=== PATIENT | female | born 2000 | race Caucasian/White ===

== ENCOUNTER 2019-04-13 13:35 | Emergency (ER) | payer BC ==
[2019-04-13 13:51] VITALS: BP 95/52; PULSE 70; TEMP 98.3; BMI 17.7
--- NOTE | 2019-04-13 14:03 | PDOC ---
History of Present Illness - General Chief Complaint: Injury Stated Complaint: RT FOOT INJURY Time Seen by Provider: 04/13/19 13:37 - History of Present Illness Initial Comments: 04/13/19 13:59 18 F with h/o POTS presents to ED with R 1st toe pain. Pt states that she was walking around outside barefoot when she stubbed her toe against uneven pavement. Denies fall/headstrike. Pt states that she now has pain and swelling in her big toe that is exacerbated by weight bearing and walking. Also endorses some mild pain in her lateral ankle. Denies knee or hip pain. Past History - Past Medical History Allergies/Adverse Reactions: Allergies Allergy/AdvReac Type Severity Reaction Status Date / Time ibuprofen Allergy Verified 04/13/19 13:36 Home Medications: Ambulatory Orders Fludrocortisone Acetate 0.1 mg PO BID 04/13/19 Folic Acid 1 mg PO DAILY 04/13/19 Sertraline HCl [Zoloft] 175 mg PO DAILY 04/13/19 Topiramate [Topamax] 50 mg PO DAILY 04/13/19 COPD: No - Psycho Social/Smoking Cessation Hx Smoking History: Never smoked Have you smoked in the past 12 months: No Information on smoking cessation initiated: No Hx Alcohol Use: No Drug/Substance Use Hx: No Review of Systems - Review of Systems Comments:: 04/13/19 14:00 "GENERAL/CONSTITUTIONAL: No fever or chills. No weakness. HEAD, EYES, EARS, NOSE AND THROAT: No change in vision. No ear pain or discharge. No sore throat. CARDIOVASCULAR: No chest pain, no shortness of breath, no loss of consciousness RESPIRATORY: No cough, wheezing, or hemoptysis. GASTROINTESTINAL: No nausea, vomiting, diarrhea or constipation. GENITOURINARY: No dysuria, frequency, or change in urination. MUSCULOSKELETAL: + R 1st toe and ankle pain, No neck or back pain. SKIN: No rash NEUROLOGIC: No vertigo, no change in strength/sensation. ENDOCRINE: No increased thirst. No abnormal weight change. HEMATOLOGIC/LYMPHATIC: No anemia, easy bleeding, or history of blood clots. ALLERGIC/IMMUNOLOGIC: No hives or skin allergy. *Physical Exam - Vital Signs Last Vital Signs Temp Pulse Resp BP Pulse Ox 98.3 F 70 20 95/52 L 100 04/13/19 13:36 04/13/19 13:36 04/13/19 13:36 04/13/19 13:36 04/13/19 13:36 - Physical Exam Comments: 04/13/19 14:01 "GENERAL: Awake, alert, and fully oriented, in no acute distress. HEAD: No signs of trauma EYES: PERRLA, EOMI, sclera anicteric, conjunctiva clear ENT: Auricles normal inspection, hearing grossly normal, nares patent, oropharynx clear without exudates. Moist mucosa NECK: Nontender, no stepoffs, Normal ROM, supple, no lymphadenopathy, JVD, or masses LUNGS: Breath sounds equal, clear to auscultation bilaterally. No wheezes, and no crackles HEART: Regular rate and rhythm, normal S1 and S2, no murmurs, rubs or gallops ABDOMEN: Soft, nontender, normoactive bowel sounds. No guarding, no rebound. No masses EXTREMITIES: + mild ecchymosis and swelling to R 1st toe, tender at distal 1st metatarsal, mild TTP lateral malleolus, Normal range of motion, no edema. No clubbing or cyanosis. No cords, erythema NEUROLOGICAL: Cranial nerves II through XII intact. 5/5 strength and sensation in all extremities, Normal speech, normal gait, normal cerebellar function SKIN: Warm, Dry, normal turgor, no rashes or lesions noted. ED Treatment Course - RADIOLOGY Radiology Studies Ordered: Category Date Time Status ANKLE & FOOT-RIGHT* [RAD] Stat Radiology 04/13/19 13:52 Ordered TOE(S) RIGHT [RAD] Stat Radiology 04/13/19 13:52 Ordered Medical Decision Making - Medical Decision Making 04/13/19 14:02 18 F with R 1st toe and ankle pain after stubbing her toe. - XR toes, foot, ankle 04/13/19 14:47 XRs negative Pt placed in SHALONDA wrap Pt is well appearing, with normal vitals. Clinically stable for DC at this time. I discussed the physical exam findings, ancillary test results and final diagnoses with the patient. I answered all of the patient's questions. The patient was satisfied with the care received and felt comfortable with the discharge plan and treatment plan. The patient agrees to follow up with the primary care physician within 24-72 hours. Discharge - Discharge Information Problems reviewed: Yes Clinical Impression/Diagnosis: Toe pain, Ankle pain Disposition: HOME - Follow up/Referral Referrals: Ramana Springer MD [Staff Physician] - Aquilino Lynne DO [Staff Physician] - - Patient Discharge Instructions Patient Printed Discharge Instructions: DI for Toe Sprain Additional Instructions: Your X rays today did not show any fractures. However, this does not rule out all injuries. Rest, ice, and elevated your foot for the next few days. If you continue to have pain after 48-72 hours, call the number provided to make an appointment with an orthopedic surgeon. You may need a MRI to further evaluate your injury. If you experience worsening pain, swelling, or any other concerning symptoms, return to the ER immediately. - Post Discharge Activity
== END 2019-04-13 15:48 | disposition home or self-care (01) ==
LOC: FER 13:35
DX: M79.674 Pain in right toe(s) (principal); M25.571 Pain in right ankle and joints of right foot; W22.8XXA Striking against or struck by other objects, initial encounter; Y93.01 Activity, walking, marching and hiking; Y92.480 Sidewalk as the place of occurrence of the external cause; Z88.6 Allergy status to analgesic agent
CPT/HCPCS: 73610-TC-RT-FY; 73630-TC-RT-FY; 73660-TC-FY; 99281-25